=== PATIENT | female | born 1995 | race Caucasian/White ===

== ENCOUNTER 2021-01-26 22:59 | Emergency (ER) | payer OTHER ==
[~2021-01-26] VITALS: Ht 154.9 cm; Wt 54.4 kg
--- NOTE | 2021-01-26 23:16 | NUR ---
PT AAOX4. BIBSELF C/O SI WITH PLAN TO CUT WRIST. PLACED IN BED 13 ON MONITOR AND PULSE OX,. ER MD AT BEDSIDE FOR EVAL. AWAITING ORDERS. SITTER AT BEDSIDE.
[2021-01-26 23:29] LABS: BILIRUBIN,URINE Negative (NEGATIVE); COLOR,URINE YELLOW (YELLOW); LEUKOCYTE ESTERASE ,URINE Trace (NEGATIVE); NITRITE, URINE Negative (NEGATIVE); PH,URINE 5.5 (5.0-8.0); PROTEIN,URINE Negative (NEGATIVE); UGLUCOSE Negative (NEGATIVE); UROBILINOGEN,URINE 0.2 EU/dL (0.2)
[2021-01-26 23:34] LABS: BACTERIA,URINE Few /HPF (None Seen); RBC,URINE NONE SEEN /HPF (0-2); SQUAMOUS EPITHELIAL CELL,UR Few /HPF (None Seen)
[2021-01-26 23:38] LABS: BASOPHILS # (AUTO) 0.2 K/uL (0.0-0.2); BASOPHILS % (AUTO) 1.8 % (0.0-2.0); EOSINOPHILS % (AUTO) 1.5 % (0.0-6.0); HEMATOCRIT 44 % (33-45); HEMOGLOBIN 14.8 g/dL (11.5-14.8); LYMPHOCYTES # (AUTO) 1.9 K/uL (0.8-4.8); LYMPHOCYTES % (AUTO) 17.2 % (20.0-44.0); MEAN CORPUSCULAR HGB CONC 34 g/dl (31.0-36.0); MEAN CORPUSCULAR VOLUME 89 fL (82-100); MONOCYTES # (AUTO) 0.8 K/uL (0.1-1.30); MONOCYTES % (AUTO) 7.2 % (2.0-12.0); NEUTROPHILS % (AUTO) 72.3 % (43.0-81.0); PLATELET COUNT (AUTO) 213 K/uL (150-450); RED BLOOD CELL COUNT(AUTO) 4.96 MIL/uL (4.0-5.2); WHITE BLOOD COUNT (AUTO) 11.1 K/uL (4.3-11.0)
[2021-01-26 23:45] LABS: CARBON DIOXIDE 27 mmol/L (21-32); CHLORIDE 104 mmol/L (98-107); CREATININE 0.7 mg/dL (0.6-1.3); GLUCOSE 93 mg/dL (74-106); POTASSIUM 3.7 mmol/L (3.5-5.1); SODIUM SERUM 140 mmol/L (136-145); UREA NITROGEN, BLOOD 19 mg/dL (7-18)
[2021-01-26 23:50] LABS: ALANINE AMINOTRANSFERASE 18 U/L (12-78); ALBUMIN 4.1 g/dL (3.4-5.0); ALKALINE PHOSPHATASE 52 U/L (46-116); ASPARTATE AMINOTRANSFERASE 16 U/L (15-37); BILIRUBIN,DIRECT 0.1 mg/dL (0.0-0.2); BILIRUBIN,TOTAL 0.5 mg/dL (0.2-1.0); TOTAL PROTEIN, SERUM 7.8 g/dL (6.4-8.2)
[2021-01-26 23:52] LABS: ACETAMINOPHEN < 2 ug/ml (10-30); ALCOHOL, BLOOD < 3 mg/dL (0-0)
--- NOTE | 2021-01-27 00:01 | NUR ---
BLOOD WORK COLLECTED, SENT TO LAB.
--- NOTE | 2021-01-27 00:27 | NUR ---
CLINICALS FAXED TO [facility]
[2021-01-27 02:00] VITALS: BP 128/68
--- NOTE | 2021-01-27 02:18 | NUR ---
test result and covid faxed to intake
--- NOTE | 2021-01-27 03:15 | NUR ---
pt accepted at [facility] the care of dr louise. room assignment will be given upon report.
--- NOTE | 2021-01-27 03:26 | NUR ---
report given to LIBBY Lopez for antonio at the [facility].
--- NOTE | 2021-01-27 03:28 | NUR ---
[facility] at bedside for pt transport to [facility]. pt is in stable condition for transport. pt is ambulatory on steady gait. report given to emt
--- NOTE | 2021-01-27 03:35 | NUR ---
PT LEFT ON GURBRIANNA WITH 2 EMT AT BEDSIDE
== END 2021-01-27 03:36 ==
LOC: ER 23:11
DX: R45.851 Suicidal ideations (principal); F12.90 Cannabis use, unspecified, uncomplicated; F20.9 Schizophrenia, unspecified; F32.A Depression, unspecified
CPT/HCPCS: 36415; 80048; 80076; 80143; 80307; 80320; 81001; 84703; 85025; 87426; 99285; C9803; G0480